=== PATIENT | female | born 1960 | race Caucasian/White ===

== ENCOUNTER 2022-06-11 20:00 | Inpatient (IN) | payer BC ==
[~2022-06-11] VITALS: Ht 165.1 cm; Wt 114.0 kg
[2022-06-11 21:21] LABS: PROTHROMBIN TIME 10.8 sec (9.6-11.0)
[2022-06-11 21:23] LABS: BASOPHILS % 0.3 % (0.0-2.0); EOSINOPHILS % 1.5 % (0.0-5.0); HEMATOCRIT. 37.5 % (36.0-48.0); HEMOGLOBIN. 12.1 g/dL (12.0-16.0); LYMPHOCYTES % 23.8 % (20.0-50.0); MEAN CORPUSCULAR HEMOGLOBIN 25.4 pg (28.0-32.0); MEAN CORPUSCULAR VOLUME 78.9 fL (81.0-99.0); MONOCYTES % 5.9 % (2.0-8.0); NEUTROPHILS % 68.5 % (40.0-76.0); PLATELET 292 x1000/uL (130-400); RED BLOOD CELL COUNT 4.76 mill/uL (4.2-5.4); RED CELL DISTRIBUTION WIDTH 14.8 % (11.6-14.6)
[2022-06-11 21:27] LABS: CHLORIDE 107 mEq/L (98-107)
[2022-06-11] MEDS ORDERED: MORPHINE SULFATE 10 MG/ML CPJ IV NR (22:00)
[2022-06-11] MEDS: ONDANSETRON HCL 4MG/2ML INJ IV NR (22:12)
[2022-06-11] MEDS ORDERED: ONDANSETRON HCL 4MG/2ML INJ IV NR (23:30)
[2022-06-12 00:56] LABS: CLARITY URINE CLEAR (CLEAR); COLOR URINE YELLOW (YELLOW); KETONES URINE NEGATIVE (NEGATIVE); LEUKOCYTE ESTERASE URINE NEGATIVE (NEGATIVE); NITRITE URINE NEGATIVE (NEGATIVE); OCCULT BLOOD URINE 1+ (NEGATIVE); PH URINE 6.5 (4.5-8.0); PROTEIN URINE 3+ (NEGATIVE); SPECIFIC GRAVITY URINE 1.026 (1.005-1.030); UROBILINOGEN URINE 0.2 E.U./dL (0.2-1.0)
[2022-06-12] MEDS ORDERED: MORPHINE SULFATE 10 MG/ML CPJ IV ONE (01:00)
[2022-06-12] MEDS ORDERED: MIDAZOLAM HCL 2 MG/2 ML VIAL IV ONE (02:15)
[2022-06-12] MEDS ORDERED: NALOXONE HCL 0.4MG/ML VIAL IV PRN (04:45)
[2022-06-12] MEDS ORDERED: ONDANSETRON HCL 4MG/2ML INJ IV PRN (04:45)
[2022-06-12] MEDS: ONDANSETRON HCL 4MG/2ML INJ IV NR (04:48)
[2022-06-12] MEDS: MORPHINE SULFATE 2 MG/ML CPJ (NOT FOR IM USE) IV PRN ×2 (04:48→11:09)
[2022-06-12] MEDS ORDERED: HYDRALAZINE 20MG/ML VIAL IV PRN (07:15)
[2022-06-12] MEDS ORDERED: AMLODIPINE 10MG TABLET PO SCH (15:15)
[2022-06-12 15:40] VITALS: BP 167/82
== END 2022-06-12 16:04 | disposition left against medical advice (07) | DRG 394 ==
LOC: ER 20:00 → MICUSO 06-12 05:48 → EDBEDREQSVC 06-12 06:07 → EDBEDREQTM 06-12 06:07 → EDBEDREQ 06-12 06:07 → EDBEDREQSVC 06-12 07:04
PROVIDERS: ADMIT Internal Medicine; ATTEND Internal Medicine
DX: K42.0 Umbilical hernia with obstruction, without gangrene (principal); Z68.41 Body mass index [BMI] 40.0-44.9, adult; E66.01 Morbid (severe) obesity due to excess calories; I10 Essential (primary) hypertension; Z90.49 Acquired absence of other specified parts of digestive tract; Z88.0 Allergy status to penicillin; Z88.8 Allergy status to other drugs, medicaments and biological substances; Z71.3 Dietary counseling and surveillance
CPT/HCPCS: 36415; 71045; 74177; 80053; 81003; 82962; 83036; 83605; 85025; 99285; J2250; J2270; J2405